=== PATIENT | male | born 1990 | race Caucasian/White ===

== ENCOUNTER 2016-05-23 10:44 | Emergency (ER) | payer OTHER ==
[2016-05-23 11:01] VITALS: RESP 18
--- NOTE | 2016-05-23 11:01 | ED ---
General Adult HPI - General Stated complaint: POSS PNEUMONIA Time Seen by Provider: 05/23/16 10:45 Source: RN notes reviewed - History of Present Illness Initial comments: This is a 25-year-old male presents emergency room complaining of a cough and sore throat for the last day. Patient states he thinks he has a fever but did not take his temperature. Patient denies any chest pain or palpitations. Patient states he feels like it's difficult to get a full breath. Patient states he is a smoker however. Patient denies any abdominal pain patient denies nausea vomiting diarrhea. Patient denies any headaches lightheadedness dizziness or near syncopal episode. Patient denies any back pain. - Related Data Previous Rx's Medication Instructions Recorded Azithromycin [Zithromax Tri-Cong] 500 mg PO DAILY #3 tab 05/23/16 Allergies Allergy/AdvReac Type Severity Reaction Status Date / Time No Known Allergies Allergy Verified 05/23/16 11:10 Review of Systems ROS Statement: Those systems with pertinent positive or pertinent negative responses have been documented in the HPI. ROS Other: All systems not noted in ROS Statement are negative. General Exam - General Exam Comments Initial Comments: GENERAL: Patient is well-developed and well-nourished. Patient is nontoxic and well- hydrated and is in mild distress. ENT: Neck is soft and supple. No significant lymphadenopathy is noted. Oropharynx is clear. Moist mucous membranes. Neck has full range of motion without eliciting any pain. EYES: The sclera were anicteric and conjunctiva were pink and moist. Extraocular movements were intact and pupils were equal round and reactive to light. Eyelids were unremarkable. PULMONARY: Unlabored respirations. Diminished breath sounds. No audible rales rhonchi or wheezing was noted. CARDIOVASCULAR: Patient is tachycardic at 110 bpm. ABDOMEN: Soft and nontender with normal bowel sounds. No palpable organomegaly was noted. There is no palpable pulsatile mass. SKIN: Skin is clear with no lesions or rashes and otherwise unremarkable. NEUROLOGIC: Patient is alert and oriented x3. Cranial nerves II through XII are grossly intact. Motor and sensory are also intact. Normal speech, volume and content. Symmetrical smile. MUSCULOSKELETAL: Normal extremities with adequate strength and full range of motion. No lower extremity swelling or edema. No calf tenderness. LYMPHATICS: No significant lymphadenopathy is noted PSYCHIATRIC: Normal psychiatric evaluation. Course Vital Signs 05/23/16 05/23/16 05/23/16 10:59 11:01 11:09 Temperature 100.0 F H Pulse Rate 108 H 101 H Respiratory 18 18 Rate Blood Pressure 154/81 O2 Sat by Pulse 98 Oximetry 05/23/16 11:16 Temperature Pulse Rate 113 H Respiratory Rate Blood Pressure O2 Sat by Pulse Oximetry Medical Decision Making - Medical Decision Making Chest x-ray shows no acute abnormality. Patient had a rapid strep was negative - Lab Data Lab Results 05/23/16 Range/Units 11:30 Group A Strep Rapid Negative (Negative) Disposition Clinical Impression: Acute bronchitis Disposition: HOME SELF-CARE Condition: Good Instructions: Acute Bronchitis (ED) Prescriptions: Azithromycin [Zithromax Tri-Cong] 500 mg PO DAILY #3 tab Referrals: Nakul Nam MD [Primary Care Provider] - 1-2 days Time of Disposition: 12:50
[2016-05-23] MEDS: IPRATROPIUM-ALBUTEROL 3 ML NEB INHALATION STA (11:07)
[2016-05-23] MEDS: ACETAMINOPHEN TAB 500 MG TAB PO STA (11:31)
[2016-05-23] MEDS: IBUPROFEN 600 MG TAB PO STA (11:31)
--- NOTE | 2016-05-23 12:05 | XR ---
EXAMINATION TYPE: XR chest 2V DATE OF EXAM: 05/23/2016 11:59 AM COMPARISON: NONE TECHNIQUE: PA and lateral views submitted. HISTORY: Difficulty breathing FINDINGS: The lungs are clear and there is no pneumothorax, pleural effusion, or focal pneumonia. IMPRESSION: 1. No acute process.
[2016-05-23 13:12] VITALS: BP 129/62; PULSE 87; TEMP 99.7
== END 2016-05-23 13:12 | disposition home or self-care (01) ==
LOC: EC 10:44
DX: J20.9 Acute bronchitis, unspecified (principal); F17.200 Nicotine dependence, unspecified, uncomplicated
CPT/HCPCS: 71020; 87081; 87430; 94640; 99283

== ENCOUNTER → 2016-05-29 | Outpatient (CLI) | payer OTHER ==
--- NOTE | 2016-05-29 07:33 | US ---
EXAMINATION TYPE: US gallbladder DATE OF EXAM: 05/29/2016 7:14 AM COMPARISON: NONE CLINICAL HISTORY: R10.13 Epigastric pain. Patient stated epigastric pain and lateral abdomen pain is noted when hungry. EXAM MEASUREMENTS: Liver Length: 21.5 cm Gallbladder Wall: 0.2 cm CBD: 0.3 cm Right Kidney: 11.5 x 4.8 x 3.9 cm TECHNOLOGIST IMPRESSION: Pancreas: wnl as is limitedly seen Liver: enlarged, fatty as is hyperechoic to right renal cortex; minimal focal sparing is noted at ga llbladder level Gallbladder: wnl Evidence for sonographic Rivera's sign: No CBD: wnl Right Kidney: wnl Pancreas is suboptimally evaluated on images saved due to shadowing from overlying bowel gas. Liver i s heterogeneously hyperechoic in appearance without evidence of intrahepatic ductal dilatation. Evalu ation for masses is limited due to the heterogeneity. Finding most likely on basis of diffuse fatty i nfiltration. IMPRESSION: No gallstones or ultrasound evidence for acute cholecystitis. Diffuse fatty infiltration of liver is felt present.
== END | disposition home or self-care (01) ==
LOC: RADUSWWP 06:51
PROVIDERS: ATTEND Family Medicine
DX: K76.0 Fatty (change of) liver, not elsewhere classified (principal)
CPT/HCPCS: 76705

== ENCOUNTER 2017-09-22 01:26 | Emergency (ER) | payer OTHER ==
[2017-09-22 02:00] VITALS: BP 143/80; PULSE 94; RESP 16; TEMP 98.3
[2017-09-22] MEDS ORDERED: IBUPROFEN 600 MG TAB PO STA (02:27)
--- NOTE | 2017-09-22 02:30 | ED ---
Fall HPI - General Chief Complaint: Fall Stated Complaint: Hand Injury, Fall Time Seen by Provider: 09/22/17 02:05 Source: patient, RN notes reviewed Mode of arrival: ambulatory - History of Present Illness Initial Comments: This is a 26-year-old male who presents to the emergency department with chief complaint of right hand injury. Patient states that at 12:30 fell down a set of steps. He states that he landed on his right hand and is pending pinky pain. Patient states that he is under present sure that he broke his pinky. He states he is having difficulty moving the pinky. Denies any other injuries or trauma. Denies recent fevers or chills, chest pain or shortness of breath, abdominal pain, nausea or vomiting. - Related Data Previous Rx's Medication Instructions Recorded Azithromycin [Zithromax Tri-Cogn] 500 mg PO DAILY #3 tab 05/23/16 Allergies Allergy/AdvReac Type Severity Reaction Status Date / Time No Known Allergies Allergy Verified 09/22/17 02:00 Review of Systems ROS Statement: Those systems with pertinent positive or pertinent negative responses have been documented in the HPI. ROS Other: All systems not noted in ROS Statement are negative. Past Medical History Past Medical History: No Reported History History of Any Multi-Drug Resistant Organisms: None Reported Past Surgical History: No Surgical Hx Reported Past Psychological History: No Psychological Hx Reported Smoking Status: Current every day smoker Past Alcohol Use History: None Reported Past Drug Use History: None Reported General Exam - General Exam Comments Initial Comments: General: Awake and alert, well-developed; in no apparent distress. HEENT: Head atraumatic, normocephalic. Pupils are equal, round and reactive to light. Extraocular movements intact. Oropharynx moist without erythema or exudate. Neck: Supple. Normal ROM. Cardiovascular: Regular rate and rhythm. No murmurs, rubs or gallops. Chest symmetrical. Respiratory: Lungs clear to auscultation bilaterally. No wheezes, rales or rhonchi. Normal respiratory effort with no use of accessory muscles. Musculoskeletal: Limited range of motion of the right fifth finger due to pain. There is soft tissue swelling and tenderness noted to the fifth metacarpal. Sensation is intact. Radial pulses are 2+ equal and palpable bilaterally. Skin: [place], warm and dry without rashes or lesions. Neurological: Alert and oriented x3. CN II-XII grossly intact. Speech is fluent and answers are appropriate. No focal neuro deficits. Psychiatric: Normal mood and affect. No overt signs of depression or anxiety noted. Limitations: no limitations Course Vital Signs 09/22/17 01:57 Temperature 98.3 F Pulse Rate 94 Respiratory 16 Rate Blood Pressure 143/80 O2 Sat by Pulse 98 Oximetry Procedures - Orthopedic Splinting/Casting Injury #1 Side: right Upper Extremity Injury Location: short arm Upper Extremity Immobilizer: ulnar gutter, synthetic pre-padded splint Medical Decision Making - Medical Decision Making This is a 26-year-old male presents to the emergency department with chief complaint of right hand injury. On physical examination, there is soft tissue swelling and tenderness along the fifth metacarpal with mild deformity noted. X -ray of the right hand revealed a midshaft fracture of the right fifth metacarpal with posterior angulation and no displacement. Patient is neurovascularly intact. A short arm ulnar gutter splint is placed and patient given referral to orthopedics. He is to follow up with orthopedics within 1-2 days. Vitals are stable and patient is in no acute distress. He will be discharged home at this time. All questions answered. - Radiology Data Radiology results: report reviewed, image reviewed X-ray right hand impression: Acute fracture mid shaft fifth metacarpal Disposition Clinical Impression: Fracture of fifth metacarpal bone of right hand Disposition: HOME SELF-CARE Condition: Good Instructions: Boxer Fracture (ED) Additional Instructions: Please follow-up with Dr. Bueno, orthopedics within 1-2 days. Please keep splint clean, dry and intact. Please follow up with primary care provider within 1-2 days. Return to emergency department if symptoms should worsen or any concerns arise. Is patient prescribed a controlled substance at d/c from ED?: No Referrals: Nakul Nam MD [Primary Care Provider] - 1-2 days Javier Bueno MD [STAFF PHYSICIAN] - 1-2 days Time of Disposition: 03:28
--- NOTE | 2017-09-22 02:38 | XR ---
EXAMINATION TYPE: XR hand complete RT DATE OF EXAM: 09/22/2017 COMPARISON: NONE HISTORY: Pain after falling down the stairs TECHNIQUE: 3 views FINDINGS: There is nondisplaced fracture mid shaft of the fifth metacarpal. There is some posterior a ngulation at the fracture site. IMPRESSION: Acute fracture midshaft fifth metacarpal
== END 2017-09-22 03:39 | disposition home or self-care (01) ==
LOC: EC 01:26
DX: S62.356A Nondisplaced fracture of shaft of fifth metacarpal bone, right hand, initial encounter for closed fracture (principal); F17.200 Nicotine dependence, unspecified, uncomplicated; W10.9XXA Fall (on) (from) unspecified stairs and steps, initial encounter; Y92.009 Unspecified place in unspecified non-institutional (private) residence as the place of occurrence of the external cause
CPT/HCPCS: 29125; 99283

== ENCOUNTER 2018-02-04 17:43 | Emergency (ER) | payer OTHER ==
[2018-02-04 18:09] VITALS: BP 148/84; PULSE 80; RESP 18; TEMP 98
--- NOTE | 2018-02-04 19:17 | ED ---
ENT HPI - General Chief complaint: ENT Stated complaint: sore throat Time Seen by Provider: 02/04/18 18:18 Source: patient, RN notes reviewed, old records reviewed Mode of arrival: ambulatory Limitations: no limitations - History of Present Illness Initial comments: Patient is a 27-year-old male who presents emergency Department with upper respiratory congestion, sore throat. Patient states that his main complaint is throat. He states he's been using vead-ddt-iuwxale medication such as Tylenol cold and sinus with no relief. Patient states that he has had no known fevers. He denies any abdominal pain, chest pain or shortness of breath. He is a smoker. Patient denies to emergency department today with his girlfriend. - Related Data Previous Rx's Medication Instructions Recorded Fluticasone Nasal Greer [Flonase 1 spray EA NOSTRIL DAILY #1 bottle 02/04/18 Nasal Greer] methylPREDNISolone Dose Pack 4 mg PO DIRECTED #21 package 02/04/18 [Medrol Dose Pack] methylPREDNISolone [Medrol Dose 4 mg PO DIRECTED #1 pack 02/04/18 Pack] Allergies Allergy/AdvReac Type Severity Reaction Status Date / Time No Known Allergies Allergy Verified 09/22/17 02:00 Review of Systems ROS Statement: Those systems with pertinent positive or pertinent negative responses have been documented in the HPI. ROS Other: All systems not noted in ROS Statement are negative. Past Medical History Past Medical History: No Reported History History of Any Multi-Drug Resistant Organisms: None Reported Past Surgical History: No Surgical Hx Reported Past Psychological History: No Psychological Hx Reported Smoking Status: Former smoker Past Alcohol Use History: None Reported Past Drug Use History: None Reported General Exam - General Exam Comments Initial Comments: 27-year-old male. Alert and oriented. No acute distress. Limitations: no limitations General appearance: alert, in no apparent distress Head exam: Present: atraumatic, normocephalic, normal inspection Eye exam: Present: normal appearance, PERRL, EOMI. Absent: scleral icterus, conjunctival injection, periorbital swelling ENT exam: Present: normal exam, mucous membranes moist, TM's normal bilaterally. Absent: normal oropharynx (Slight erythematous oropharynx. No evidence of exudate.) Neck exam: Present: normal inspection. Absent: tenderness, meningismus, lymphadenopathy Respiratory exam: Present: normal lung sounds bilaterally. Absent: respiratory distress, wheezes, rales, rhonchi, stridor Cardiovascular Exam: Present: regular rate, normal rhythm, normal heart sounds. Absent: systolic murmur, diastolic murmur, rubs, gallop, clicks GI/Abdominal exam: Present: soft, normal bowel sounds. Absent: distended, tenderness, guarding, rebound, rigid Extremities exam: Present: normal inspection, full ROM, normal capillary refill. Absent: tenderness, pedal edema, joint swelling, calf tenderness Back exam: Present: normal inspection Neurological exam: Present: alert, oriented X3, CN II-XII intact Psychiatric exam: Present: normal affect, normal mood Course Vital Signs 02/04/18 18:06 Temperature 98.0 F Pulse Rate 80 Respiratory 18 Rate Blood Pressure 148/84 O2 Sat by Pulse 99 Oximetry Medical Decision Making - Medical Decision Making Patient is a 27-year-old male presents emergency room stay with upper respiratory congestion and sore throat. His slight erythematous oropharynx. No evidence of exudate. Rapid strep was obtained. This was negative. Discussed likely viral infection. He has a siblings a slight cough. Will discharge Patient with steroids and Flonase. I discussed following up with PCP. QUESTIONS answered. - Lab Data Lab Results 02/04/18 Range/Units 18:35 Group A Strep Rapid Negative (Negative) Disposition Clinical Impression: Pharyngitis, Upper respiratory infection Disposition: HOME SELF-CARE Condition: Good Instructions: Upper Respiratory Infection (ED), Viral Syndrome (ED) Additional Instructions: Patient has a take the steroids, use the Flonase and continue [id number] medications as prescribed. Return to the emergency department if any alarming signs or symptoms occur. Prescriptions: Fluticasone Nasal Greer [Flonase Nasal Greer] 1 spray EA NOSTRIL DAILY #1 bottle methylPREDNISolone [Medrol Dose Pack] 4 mg PO DIRECTED #1 pack methylPREDNISolone Dose Pack [Medrol Dose Pack] 4 mg PO DIRECTED #21 package Is patient prescribed a controlled substance at d/c from ED?: No Referrals: Nakul Nam MD [Primary Care Provider] - 1-2 days Time of Disposition: 19:15
== END 2018-02-04 19:25 | disposition home or self-care (01) ==
LOC: EC 17:43
DX: J02.9 Acute pharyngitis, unspecified (principal); Z87.891 Personal history of nicotine dependence
CPT/HCPCS: 87081; 87430; 99283

== ENCOUNTER 2018-03-04 19:00 | Emergency (ER) | payer OTHER ==
[2018-03-04] MEDS ORDERED: ACETAMINOPHEN TAB 500 MG TAB PO STA (19:25)
[2018-03-04] MEDS ORDERED: IPRATROPIUM-ALBUTEROL 3 ML NEB INHALATION STA (19:25)
--- NOTE | 2018-03-04 19:27 | ED ---
URI HPI - General Chief Complaint: Upper Respiratory Infection Stated Complaint: Congestion Time Seen by Provider: 03/04/18 19:07 Source: patient, RN notes reviewed, old records reviewed Mode of arrival: ambulatory Limitations: no limitations - History of Present Illness Initial Comments: 27-year-old male presents to service he was to plan of cough for the past 4 days. He reports that the cough has been somewhat productive in nature. Disease coughs to the point of near vomiting. Patient denies any history of sick contacts. He reports chills and low-grade fever. He reports his been taking NyQuil with no relief of his symptoms. Patient is a previous smoker. No significant history of asthma or lung diseases.Patient denies any recent fever, chills, shortness of breath, chest pain, back pain, abdominal pain, nausea vomiting, numbness or tingling, dysuria or hematuria, constipation or diarrhea, headaches or visual changes, or any other current symptoms - Related Data Previous Rx's Medication Instructions Recorded Albuterol Inhaler [Ventolin Hfa 1 - 2 puff INHALATION RT-Q6H PRN 03/04/18 Inhaler] #1 inhaler Azithromycin [Zithromax Z-pack] 250 mg PO DIRECTED #6 tab 03/04/18 methylPREDNISolone Dose Pack 4 mg PO DIRECTED #21 package 03/04/18 [Medrol Dose Pack] Allergies Allergy/AdvReac Type Severity Reaction Status Date / Time No Known Allergies Allergy Verified 03/04/18 19:28 Review of Systems ROS Statement: Those systems with pertinent positive or pertinent negative responses have been documented in the HPI. ROS Other: All systems not noted in ROS Statement are negative. Past Medical History Past Medical History: No Reported History History of Any Multi-Drug Resistant Organisms: None Reported Past Surgical History: No Surgical Hx Reported Past Psychological History: No Psychological Hx Reported Smoking Status: Former smoker Past Alcohol Use History: None Reported Past Drug Use History: None Reported General Exam - General Exam Comments Initial Comments: 27-year-old male. Alert and oriented. Patient appears in no acute distress. Limitations: no limitations General appearance: alert, in no apparent distress Head exam: Present: atraumatic, normocephalic, normal inspection Eye exam: Present: normal appearance, PERRL, EOMI. Absent: scleral icterus, conjunctival injection, periorbital swelling ENT exam: Present: normal exam, mucous membranes moist Neck exam: Present: normal inspection. Absent: tenderness, meningismus, lymphadenopathy Respiratory exam: Present: decreased breath sounds. Absent: normal lung sounds bilaterally, respiratory distress, wheezes, rales, rhonchi, stridor Cardiovascular Exam: Present: regular rate, normal rhythm, normal heart sounds. Absent: systolic murmur, diastolic murmur, rubs, gallop, clicks GI/Abdominal exam: Present: soft, normal bowel sounds. Absent: distended, tenderness, guarding, rebound, rigid Extremities exam: Present: normal inspection, full ROM, normal capillary refill. Absent: tenderness, pedal edema, joint swelling, calf tenderness Back exam: Present: normal inspection Neurological exam: Present: alert, oriented X3, CN II-XII intact Psychiatric exam: Present: normal affect, normal mood Course Vital Signs 03/04/18 03/04/18 03/04/18 19:03 19:43 20:06 Temperature 98.2 F Pulse Rate 109 H 106 H 76 Respiratory 18 16 18 Rate Blood Pressure 140/82 151/81 O2 Sat by Pulse 97 97 Oximetry 03/04/18 03/04/18 20:11 20:35 Temperature 97.7 F Pulse Rate 78 100 Respiratory 18 15 Rate Blood Pressure 137/72 O2 Sat by Pulse 100 Oximetry Medical Decision Making - Medical Decision Making This Patient is a 27-year-old male, presents emergency department today with upper respiratory congestion and cough. Chest x-ray is normal. Did have some slight wheezing on exam. Concern for bronchitis. He is a nonsmoker. Patient does report improvement after DuoNeb treatment. We'll discharge patient's eye with Medrol Dosepak, albuterol inhaler and azithromycin. Discussed close return parameters and follow-up with PCP. PATIENT answered. - Radiology Data Radiology results: report reviewed Normal chest x-ray Disposition Clinical Impression: Bronchitis Disposition: HOME SELF-CARE Condition: Good Instructions: Upper Respiratory Infection (ED) Additional Instructions: Patient advised to follow-up with primary care physician. Take meds as prescribed. Return to emergency department if any alarming signs or symptoms occur. Prescriptions: Albuterol Inhaler [Ventolin Hfa Inhaler] 1 - 2 puff INHALATION RT-Q6H PRN #1 inhaler PRN Reason: Shortness Of Breath Azithromycin [Zithromax Z-pack] 250 mg PO DIRECTED #6 tab methylPREDNISolone Dose Pack [Medrol Dose Pack] 4 mg PO DIRECTED #21 package Is patient prescribed a controlled substance at d/c from ED?: No Referrals: Nakul Nam MD [Primary Care Provider] - 1-2 days Time of Disposition: 21:29
[2018-03-04 20:46] VITALS: BP 137/72; PULSE 100; RESP 15; TEMP 97.7
--- NOTE | 2018-03-04 21:06 | XR ---
EXAMINATION: XR chest 2V DATE AND TIME: 03/04/2018 7:54 PM CLINICAL INDICATION: PHH; Pain TECHNIQUE: Departmental protocol COMPARISON: 05/23/2016 FINDINGS: The lungs are clear. The pleural spaces are negative. The cardiac silhouette is not enlarged. The remainder of the mediastinal silhouette is unremarkable. The skeletal structures and soft tissues are negative for acute findings. IMPRESSION: NO ACUTE PROCESS.
== END 2018-03-04 21:34 | disposition home or self-care (01) ==
LOC: EC 19:00
DX: J40 Bronchitis, not specified as acute or chronic (principal); Z87.891 Personal history of nicotine dependence
CPT/HCPCS: 71046; 94640; 99284

== ENCOUNTER 2018-05-04 19:00 | Emergency (ER) | payer OTHER ==
[2018-05-04 19:11] VITALS: BP 133/89; PULSE 85; RESP 16; TEMP 98.4
[2018-05-04] MEDS ORDERED: IBUPROFEN 600 MG TAB PO STA (19:49)
[2018-05-04] MEDS ORDERED: guaiFENesin-DM 600/30MG 1 EACH TAB.ER.12H PO STA (19:49)
--- NOTE | 2018-05-04 19:50 | ED ---
URI HPI - General Chief Complaint: Upper Respiratory Infection Stated Complaint: cough, headache Time Seen by Provider: 05/04/18 19:14 Source: patient Mode of arrival: ambulatory Limitations: no limitations - History of Present Illness Initial Comments: 27-year-old male patient presents to the emergency department today for evaluation of cough and nasal congestion. Patient states this started a few hours ago. Patient states the cough is causing him to have a headache. He denies taking any medication for his symptoms. He is also concerned because there is mild in his home. He denies any fever, chills, or sore throat. Denies any blurred vision or double vision. Denies any dizziness or weakness. He is eating and drinking without difficulty. Patient denies any recent rash, shortness breath, chest pain, abdominal pain, nausea, vomiting, diarrhea, constipation, back pain, numbness, tingling, hematuria, dysuria, urinary urgency , urinary frequency, headache, visual changes, or any other complaints. - Related Data Home Medications Medication Instructions Recorded Confirmed No Known Home Medications 05/04/18 05/04/18 Allergies Allergy/AdvReac Type Severity Reaction Status Date / Time No Known Allergies Allergy Verified 05/04/18 19:33 Review of Systems ROS Statement: Those systems with pertinent positive or pertinent negative responses have been documented in the HPI. ROS Other: All systems not noted in ROS Statement are negative. Past Medical History Past Medical History: No Reported History History of Any Multi-Drug Resistant Organisms: None Reported Past Surgical History: No Surgical Hx Reported Past Psychological History: No Psychological Hx Reported Smoking Status: Former smoker Past Alcohol Use History: None Reported Past Drug Use History: None Reported General Exam Limitations: no limitations General appearance: alert, in no apparent distress, other (Physical well- developed, well-nourished adult male patient in no acute distress. Vital signs upon presentation are temperature 98.4F, pulse 85, respirations 16, blood pressure 133/89, pulse ox 100% on room air.) Eye exam: Present: normal appearance, PERRL, EOMI. Absent: scleral icterus, conjunctival injection, periorbital swelling ENT exam: Present: normal exam, normal oropharynx, mucous membranes moist Respiratory exam: Present: normal lung sounds bilaterally. Absent: respiratory distress, wheezes, rales, rhonchi, stridor Cardiovascular Exam: Present: regular rate, normal rhythm, normal heart sounds. Absent: systolic murmur, diastolic murmur, rubs, gallop, clicks GI/Abdominal exam: Present: soft, normal bowel sounds. Absent: distended, tenderness, guarding, rebound, rigid Neurological exam: Present: alert, oriented X3, CN II-XII intact Psychiatric exam: Present: normal affect, normal mood Skin exam: Present: warm, dry, intact, normal color. Absent: rash Course Vital Signs 05/04/18 19:08 Temperature 98.4 F Pulse Rate 85 Respiratory 16 Rate Blood Pressure 133/89 O2 Sat by Pulse 100 Oximetry Medical Decision Making - Medical Decision Making 27-year-old male patient presented to the emergency department today for evaluation of cough and nasal congestion that started a couple of hours ago. Patient reported headache from coughing. Physical examination is unremarkable. He is neurologically intact and no focal deficits. No fever or sore throat. Given duration of symptoms is felt the testing is not needed at this time. Symptoms are consistent with viral upper respiratory infection. He'll be given prescription for Mucinex DM and instructed take Tylenol Motrin for pain control. He is instructed to follow-up with his primary care physician for recheck in 1-2 days. Return parameters discussed in detail. He verbalizes understanding and agrees this plan. Disposition Clinical Impression: Upper respiratory infection Disposition: HOME SELF-CARE Condition: Good Instructions (If sedation given, give patient instructions): Upper Respiratory Infection (ED), Allergies (ED) Additional Instructions: Take medications as directed. Increase fluids. Follow-up with your primary care physician for recheck in 1-2 days. Return to the emergency department immediately for any new, worsening, or concerning symptoms. Is patient prescribed a controlled substance at d/c from ED?: No Referrals: Nakul aNm MD [Primary Care Provider] - 1-2 days Time of Disposition: 19:50
== END 2018-05-04 20:02 | disposition home or self-care (01) ==
LOC: EC 19:00
DX: J06.9 Acute upper respiratory infection, unspecified (principal); R51 Headache; Z87.891 Personal history of nicotine dependence
CPT/HCPCS: 99283

== ENCOUNTER 2018-09-05 16:42 | Emergency (ER) | payer OTHER ==
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
[2018-09-05] MEDS ORDERED: DIPH,PERTUS(ACELL)TETVAC-LF 0.5 ML VIAL IM ONE (17:54)
[2018-09-05] MEDS ORDERED: MORPHINE SULFATE 2 MG/ML SYRINGE IM STA (17:54)
[2018-09-05] MEDS ORDERED: ceFAZolin 1,000 MG VIAL (IM USE) IM STA (17:54)
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
[2018-09-05 19:16] VITALS: BP 130/79; PULSE 72; RESP 16; TEMP 97.8
== END 2018-09-05 19:10 | disposition home or self-care (01) ==
LOC: EC 16:42
DX: S21.139A Puncture wound without foreign body of unspecified front wall of thorax without penetration into thoracic cavity, initial encounter (principal); Z23 Encounter for immunization; F17.200 Nicotine dependence, unspecified, uncomplicated; W34.010A Accidental discharge of airgun, initial encounter
CPT/HCPCS: 71046; 71250; 90715; 99284; 90471; 96372 ×2; J0690; J2270

== ENCOUNTER 2018-10-30 19:20 | Emergency (ER) | payer OTHER ==
[2018-10-30 19:25] VITALS: RESP 18
--- NOTE | 2018-10-30 20:07 | XR ---
EXAMINATION TYPE: XR hand complete RT DATE OF EXAM: 10/30/2018 COMPARISON: NONE HISTORY: Pain TECHNIQUE: 3 views FINDINGS: There is mid shaft fracture of the fifth metacarpal. I see no dislocation. Joint spaces are normal. IMPRESSION: Acute nondisplaced fracture of the fifth metacarpal.
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
[2018-10-30 20:41] VITALS: BP 146/88; PULSE 78; TEMP 98
== END 2018-10-30 20:44 | disposition home or self-care (01) ==
LOC: EC 19:20
DX: S62.356A Nondisplaced fracture of shaft of fifth metacarpal bone, right hand, initial encounter for closed fracture (principal); F17.200 Nicotine dependence, unspecified, uncomplicated; Z98.890 Other specified postprocedural states; W22.09XA Striking against other stationary object, initial encounter
CPT/HCPCS: 29125; 99283

== ENCOUNTER 2019-04-14 00:20 | Emergency (ER) | payer OTHER ==
[2019-04-14 00:30] VITALS: RESP 18
[2019-04-14] MEDS ORDERED: IBUPROFEN ORAL SUSP 100 MG/5 ML CUP PO STA (01:39)
[2019-04-14] MEDS ORDERED: DEXAMETHASONE 4 MG TAB PO STA (01:40)
[2019-04-14] MEDS ORDERED: LIDOCAINE VISCOUS 2% 15 ML CUP MUCOUS MEM ONE (01:40)
--- NOTE | 2019-04-14 02:18 | ED ---
ENT HPI - General Chief complaint: ENT Stated complaint: Sore Throat Source: patient, family Mode of arrival: ambulatory Limitations: no limitations - History of Present Illness Initial comments: The patient is a 28-year-old male with minimal past medical history presents emergency Department with reported sore throat. He states his symptoms have been present for the past 2 days. He denies any sick contacts with similar symptoms. Does admit to pain with swelling. No reported fevers or chills. He has been able to tolerate his own secretions. He is fully vaccinated. Denies muffled voice. No drooling, trismus or stridor. Denies any chest pain or shortness of breath. He is able to rotate his neck left and right without difficulty. No neck pain or stiffness. There are no alleviating, precipitating or modifying factors - Related Data Previous Rx's Medication Instructions Recorded Ibuprofen Oral Susp [Motrin Oral 20 ml PO Q8HR PRN #240 ml 04/14/19 Susp] Lidocaine Viscous 2% [Xylocaine 10 ml MUCOUS MEM TID PRN #10 cup 04/14/19 Viscous] Albuterol Inhaler [Ventolin Hfa 1 - 2 puff INHALATION RT-Q6H PRN 04/15/19 Inhaler] #1 inhaler Guaifenesin/Dextromethorphan 1 each PO BID #30 tab 04/15/19 [Mucinex Dm ER 1,200-60 mg Tab] Allergies Allergy/AdvReac Type Severity Reaction Status Date / Time No Known Allergies Allergy Verified 04/15/19 02:55 Review of Systems ROS Statement: Those systems with pertinent positive or pertinent negative responses have been documented in the HPI. ROS Other: All systems not noted in ROS Statement are negative. Past Medical History Past Medical History: No Reported History History of Any Multi-Drug Resistant Organisms: None Reported Past Surgical History: Orthopedic Surgery Additional Past Surgical History / Comment(s): right hand Past Psychological History: No Psychological Hx Reported Smoking Status: Current every day smoker Past Alcohol Use History: None Reported Past Drug Use History: None Reported General Exam Limitations: no limitations General appearance: alert, in no apparent distress Head exam: Present: atraumatic, normocephalic, normal inspection Eye exam: Present: normal appearance, PERRL, EOMI. Absent: scleral icterus, conjunctival injection, periorbital swelling ENT exam: Present: other (posterior pharynx is red and cobblestone in appearance. Tonsils previously removed. No peritonsilar abscesses noted. Uvula midline. No white plaquing. no drooling, trismus, hoarseness or stridor) Course Vital Signs 04/14/19 04/14/19 00:26 02:28 Temperature 98.3 F 97.8 F Pulse Rate 87 85 Respiratory 18 18 Rate Blood Pressure 129/82 138/80 O2 Sat by Pulse 97 96 Oximetry Medical Decision Making - Medical Decision Making Upon arrival patient was placed in room 18. Her history and physical exam was performed. We did swab the patient for strep even though he does not have any tonsils. Strep was negative. The patient was given Motrin suspension as well as viscous lidocaine and a dose of Decadron. He is reevaluated and states he has had improvement in his symptoms. I did discuss diagnosis, differential and treatment options. I did offer further studies to include laboratory studies and a CT of the patient's neck however he refused. He did not demonstrate any peritonsillar abscess or uvular deviation. No drooling, trismus, hoarseness or stridor. No brawny edema of the neck. This time the patient will be discharged home. He needs to follow-up Dr. Nam in 2-4 days. Return to the emergency department for any worsening symptoms. I will provide a prescription prescriptions for Motrin and viscous lidocaine. Patient was discharged in stable condition - Lab Data Lab Results 04/14/19 Range/Units 01:14 Group A Strep Rapid Negative (Negative) Disposition Clinical Impression: Pharyngitis Disposition: HOME SELF-CARE Condition: Stable Instructions (If sedation given, give patient instructions): Pharyngitis (ED) Additional Instructions: Please follow-up with your primary care doctor in 2-4 days. Return to the emergency room for any new or worsening symptoms Prescriptions: Ibuprofen Oral Susp [Motrin Oral Susp] 20 ml PO Q8HR PRN #240 ml PRN Reason: Pain Lidocaine Viscous 2% [Xylocaine Viscous] 10 ml MUCOUS MEM TID PRN #10 cup PRN Reason: Pain Is patient prescribed a controlled substance at d/c from ED?: No Referrals: Nakul Nam MD [Primary Care Provider] - 1-2 days Time of Disposition: 02:18
[2019-04-14 02:31] VITALS: BP 138/80; PULSE 85; TEMP 97.8
== END 2019-04-14 02:31 | disposition home or self-care (01) ==
LOC: EC 00:20
DX: J02.9 Acute pharyngitis, unspecified (principal); F17.200 Nicotine dependence, unspecified, uncomplicated
CPT/HCPCS: 99283; 87081; 87430; J8540

== ENCOUNTER 2019-04-15 02:47 | Emergency (ER) | payer OTHER ==
[2019-04-15 02:56] VITALS: BP 135/72; PULSE 86; RESP 18; TEMP 97.9
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
== END 2019-04-15 03:57 | disposition home or self-care (01) ==
LOC: EC 02:47
DX: J40 Bronchitis, not specified as acute or chronic (principal); F17.200 Nicotine dependence, unspecified, uncomplicated
CPT/HCPCS: 71046; 99283